=== PATIENT | male | born 2000 | race African-American/Black ===

== ENCOUNTER 2023-12-14 10:24 | Emergency (ER) | payer SELFPAY ==
[~2023-12-14] VITALS: Ht 185.4 cm; Wt 82.7 kg
[2023-12-14 10:29] VITALS: BP 136/61; TEMP 98.1
[2023-12-14 11:25] VITALS: PULSE 80
== END 2023-12-14 11:25 | disposition home or self-care (01) ==
LOC: COL.ER 10:24
DX: S09.92XA Unspecified injury of nose, initial encounter (principal); Y04.0XXA Assault by unarmed brawl or fight, initial encounter